=== PATIENT | male | born 1935 | race Caucasian/White ===

== ENCOUNTER 2016-11-11 16:59 | Inpatient (IN) | payer OTHER ==
[~2016-11-11] VITALS: Ht 175.3 cm; Wt 85.8 kg
[2016-11-11] MEDS ORDERED: LIPITOR10 MG PO (17:42)
[2016-11-11] MEDS ORDERED: LEVOTHYROXINE75 MCG PO (17:42)
[2016-11-11] MEDS ORDERED: D3 + K2 DOTS 11 EACH PO (17:43)
[2016-11-11] MEDS ORDERED: FLONASE SENSIM9.9 ML BOTH NARES (17:43)
[2016-11-11] MEDS ORDERED: CENTRUM MEN'S1 EACH PO (17:43)
[2016-11-11] MEDS ORDERED: ASPIR 8181 M1 PO (17:44)
[2016-11-11] MEDS ORDERED: FOLBIC RF TABL1 EACH PO (17:44)
[2016-11-11 18:09] LABS: EOSINOPHIL (%) 0 % (0-5); HEMATOCRIT 40.7 % (38.0-50.0); IMMATURE GRANULOCYTE (%) 0.3 % (0.0-0.7); INSTRUMENT ABS NEUTROPHIL CT 9.2 K/uL; LYMPHOCYTE COUNT 0.8 K/uL (1.0-2.8); MCH 31.3 PG (29.0-34.0); MCHC 33.4 G/DL (30.0-36.0); MCV 93.6 FL (86-99); MEAN PLAT.VOLUME 8.1 uM^3 (9.0-12.4); MONOCYTE (%) 12.5 % (3-12); MONOCYTE COUNT 1.4 K/uL (0-0.8); NEUTROPHIL (%) 79.9 % (45-76); NEUTROPHIL COUNT 9.2 K/uL (1.8-6.4); PLATELET COUNT 213 K/uL (156-360); RBC DIS.WIDTH-CV 11.9 % (11.8-14.6); RBC DIS.WIDTH-SD 41.5 % (39-53); RED BLOOD COUNT 4.35 M/uL (4.00-5.50); WHITE BLOOD COUNT 11.5 K/uL (4.1-10.2)
[2016-11-11 18:20] LABS: CHLORIDE 103 mEq/L (99-109); POTASSIUM 4.3 mEq/L (3.7-5.4); SODIUM 136 mEq/L (136-147)
[2016-11-11 18:22] LABS: GLUCOSE 128 mg/dL (70-99)
[2016-11-11 18:23] LABS: ANION GAP 10 MEQ/L (2-14)
[2016-11-11 18:24] LABS: TOTAL BILIRUBIN 0.6 mg/dL (0.0-1.0)
[2016-11-11 18:25] LABS: ALKALINE PHOSPHATASE 86 IU/L (3-129)
[2016-11-11 18:26] LABS: GFR ESTIMATE (CALCULATED) 41 mL/min/
[2016-11-11 18:27] LABS: UREA NITROGEN (BUN) 24 mg/dL (9-23)
[2016-11-11 18:29] LABS: LIPASE 45 U/L (1.0-51.0)
[2016-11-11 19:09] LABS: ADD MIUA? YES; BILIRUBIN NEGATIVE; BLOOD MODERATE; COLOR YELLOW ((YELLOW)); GLUCOSE (STRIP) NEGATIVE; KETONES NEGATIVE; LEUKOCYTES LARGE; NITRITE POSITIVE; PROTEIN (STRIP) 100; SPECIFIC GRAVITY 1.016 (1.000-1.030); UROBILINOGEN 0.2 MG/DL (0.2-1.0)
[2016-11-11 19:10] LABS: BACTERIA 1+ /HPF; EPITHELIAL CELLS NONE SEEN /HPF; MUCUS TRACE /LPF; RED BLOOD CELLS NONE SEEN /HPF (0-5); WHITE BLOOD CELLS TNTC /HPF (0-5); WHITE BLOOD CELLS CLUMP MOD /HPF (0-5)
[2016-11-12 02:36] VITALS: BP 166/95
[2016-11-12 07:08] VITALS: BP 119/58
[2016-11-12 11:43] VITALS: BP 136/63
[2016-11-12 16:15] VITALS: BP 112/56
[2016-11-12 19:02] VITALS: BP 119/58
[2016-11-13] VITALS: BP 95/53
[2016-11-13 03:20] VITALS: BP 120/56
[2016-11-13 07:30] VITALS: BP 122/58
[2016-11-13 08:32] LABS: ANION GAP 7 MEQ/L (2-14); CHLORIDE 109 MEQ/L (99-109); GFR ESTIMATE (CALCULATED) 48 mL/min/; GLUCOSE 106 mg/dL (70-99); SAMPLE HEMOLYSIS CHECK 0; SAMPLE ICTERIC CHECK 0; SAMPLE LIPEMIA CHECK 0; SODIUM 140 MEQ/L (136-147); UREA NITROGEN (BUN) 19 mg/dL (9-23)
[2016-11-13 08:42] LABS: EOSINOPHIL (%) 0.7 % (0-5); EOSINOPHIL COUNT 0.1 K/uL (0-0.3); HEMATOCRIT 36.3 % (38.0-50.0); IMMATURE GRANULOCYTE (%) 0.4 % (0.0-0.7); INSTRUMENT ABS NEUTROPHIL CT 4.5 K/uL; LYMPHOCYTE COUNT 1.3 K/uL (1.0-2.8); MCH 32.1 PG (29.0-34.0); MCHC 33.3 G/DL (30.0-36.0); MCV 96.3 FL (86-99); MEAN PLAT.VOLUME 8.8 uM^3 (9.0-12.4); MONOCYTE (%) 16.5 % (3-12); MONOCYTE COUNT 1.2 K/uL (0-0.8); NEUTROPHIL (%) 63.8 % (45-76); NEUTROPHIL COUNT 4.5 K/uL (1.8-6.4); PLATELET COUNT 215 K/uL (156-360); RBC DIS.WIDTH-CV 12.3 % (11.8-14.6); RBC DIS.WIDTH-SD 43.3 % (39-53); RED BLOOD COUNT 3.77 M/uL (4.00-5.50)
[2016-11-13 12:03] VITALS: BP 117/56
[2016-11-13 16:10] VITALS: BP 125/58
[2016-11-13 23:14] VITALS: BP 124/58
[2016-11-14 07:49] LABS: HEMATOCRIT 37.4 % (38.0-50.0); MCH 31.2 PG (29.0-34.0); MCHC 33.4 G/DL (30.0-36.0); MCV 93.3 FL (86-99); MEAN PLAT.VOLUME 8.7 uM^3 (9.0-12.4); PLATELET COUNT 239 K/uL (156-360); RBC DIS.WIDTH-SD 42.1 % (39-53); RED BLOOD COUNT 4.01 M/uL (4.00-5.50); WHITE BLOOD COUNT 7.4 K/uL (4.1-10.2)
[2016-11-14 08:00] VITALS: BP 171/73
[2016-11-14 08:33] LABS: CHLORIDE 110 mEq/L (99-109); POTASSIUM 4.3 mEq/L (3.7-5.4); SODIUM 142 mEq/L (136-147)
[2016-11-14 08:34] LABS: GLUCOSE 99 mg/dL (70-99)
[2016-11-14 08:36] LABS: ANION GAP 8 MEQ/L (2-14)
[2016-11-14 08:39] LABS: GFR ESTIMATE (CALCULATED) 52 mL/min/; UREA NITROGEN (BUN) 16 mg/dL (9-23)
[2016-11-14] MEDS ORDERED: FLOMAX0.4 MG PO (10:08)
[2016-11-14] MEDS ORDERED: CIPRO500 MG PO (10:13)
[2016-11-14 11:56] VITALS: BP 149/76
[2016-11-14] MEDS ORDERED: NORVASC5 MG PO ×2 (11:59→12:00)
== END 2016-11-14 12:47 | disposition home or self-care (01) | DRG 690 ==
LOC: EME 16:59 → EDOF 11-12 01:39 → 2EASTP 11-12 01:39 → 2EAST 11-13 20:38
PROVIDERS: Hospitalist; Internal Medicine; Physician Assistant
DX: N39.0 Urinary tract infection, site not specified (principal); N17.9 Acute kidney failure, unspecified; R78.81 Bacteremia; Z85.828 Personal history of other malignant neoplasm of skin; B96.20 Unspecified Escherichia coli [E. coli] as the cause of diseases classified elsewhere; I70.0 Atherosclerosis of aorta; I10 Essential (primary) hypertension; N40.1 Benign prostatic hyperplasia with lower urinary tract symptoms; R33.9 Retention of urine, unspecified; H60.12 Cellulitis of left external ear
CPT/HCPCS: 71020; 74176; 80048; 80053; 81003; 83605; 83690; 85025; 85027; 85651; 87040; 87086; 87186; 87801; 99281; 99285; J0692; J0696; J1644; J3370; J7030; J7050